=== PATIENT | male | born 1990 | race Caucasian/White ===

== ENCOUNTER 2018-10-17 09:31 | Emergency (ER) | payer OTHER ==
[~2018-10-17] VITALS: Ht 177.8 cm; Wt 82.4 kg
[2018-10-17 09:32] VITALS: BP 149/91
[2018-10-17] MEDS ORDERED: adhd med (09:38)
--- NOTE | 2018-10-17 10:17 | REP ---
CHEST, TWO VIEWS: HISTORY: Cough. The lungs are clear. The heart is normal in size. The pulmonary vasculature is normal in appearance. The bony structure is intact. IMPRESSION: No acute disease. Electronically Signed by Roberto Carlos Garcia MD 10/17/2018 10:24 A
[2018-10-17 10:28] LABS: INFLUENZA A AMPLIFICATION POSITIVE (NEGATIVE); INFLUENZA B AMPLIFICATION NEGATIVE (NEGATIVE)
== END 2018-10-17 10:39 | disposition home or self-care (01) ==
LOC: M ED 09:31
DX: J09.X2 Influenza due to identified novel influenza A virus with other respiratory manifestations (principal); I10 Essential (primary) hypertension; Z88.8 Allergy status to other drugs, medicaments and biological substances; Z88.0 Allergy status to penicillin; Z88.1 Allergy status to other antibiotic agents

== ENCOUNTER 2018-11-11 03:39 | Emergency (ER) | payer OTHER ==
[~2018-11-11] VITALS: Ht 177.8 cm; Wt 80.9 kg
[~2018-11-11 03:39] MED LIST: adhd med
[2018-11-11] MEDS ORDERED: BUPR10TASR PO (03:43)
[2018-11-11] MEDS ORDERED: OXAZEPAM 15 MG CAP PO ONE (04:15)
[2018-11-11] MEDS ORDERED: METOPROLOL TART 50 MG TAB PO ONE (04:15)
[2018-11-11 04:30] LABS: BASO # 0.1 10^3/uL (0.0-0.2); BASO % 0.6 % (0.0-1.0); EOS # 0.1 10^3/uL (0.0-0.50); HEMATOCRIT 44.2 % (42.0-52.0); HEMOGLOBIN 15.6 g/dl (13.5-17.5); LYMPH # 2.8 10^3/uL (1.5-6.5); LYMPH % 36.6 % (24.0-44.0); MEAN CORPUSCULAR HGB CONC 35.3 g/dl (32.0-36.5); MEAN CORPUSCULAR VOLUME 87.7 fl (80.0-96.0); MONO # 0.7 10^3/uL (0.0-0.8); MONO % 8.4 % (0.0-5.0); NEUTROPHILS # 4.1 10^3/uL (1.8-7.7); PLATELET COUNT, AUTOMATED 250 10^3/uL (150-450); RED BLOOD COUNT 5.04 10^6/uL (4.30-6.10); WHITE BLOOD COUNT 7.7 10^3/uL (4.0-10.0)
[2018-11-11 05:01] LABS: ALBUMIN 3.9 GM/DL (3.2-5.2); ALT/SGPT 47 U/L (12-78); BILIRUBIN,DIRECT 0.2 MG/DL (0.0-0.2); BILIRUBIN,TOTAL 0.7 MG/DL (0.2-1.0); BLOOD UREA NITROGEN 11 MG/DL (7-18); CALCIUM LEVEL 9.1 MG/DL (8.5-10.1); CARBON DIOXIDE LEVEL 22 MEQ/L (21-32); CHLORIDE LEVEL 105 MEQ/L (98-107); CK-MB VALUE MASS < 1.0 NG/ML (<3.6); CPK CREATINE PHOSPHOKINASE 93 U/L (39-308); CREATININE FOR GFR 0.96 MG/DL (0.70-1.30); ETHYL ALCOHOL (ETHANOL) < 0.003 % (0.000-0.010); GLOMERULAR FILTRATION RATE > 60.0 (>60); GLUCOSE, FASTING 93 MG/DL (70-100); MB/CK RELATIVE INDEX 1.08 (< OR =4); POTASSIUM SERUM 3.5 MEQ/L (3.5-5.1); SODIUM LEVEL 139 MEQ/L (136-145); TOTAL PROTEIN 7.1 GM/DL (6.4-8.2); TROPONIN I < 0.02 NG/ML (< 0.10)
[2018-11-11 05:45] LABS: AMPHETAMINES LEVEL URINE NEGATIVE (NEGATIVE); BARBITURATES URINE NEGATIVE (NEGATIVE); BENZODIAZEPINES URINE NEGATIVE (NEGATIVE); CANNABINOIDS URINE POSITIVE (NEGATIVE); COCAINE METABOLITE URINE NEGATIVE (NEGATIVE); METHADONE URINE NEGATIVE (NEGATIVE); OPIATES URINE NEGATIVE (NEGATIVE); PHENCYCLIDINE URINE NEGATIVE (NEGATIVE)
[2018-11-11] MEDS ORDERED: ATEN25TA PO (05:55)
[2018-11-11 06:27] VITALS: BP 126/89
--- NOTE | 2018-11-11 07:55 | REP ---
Portable chest, single AP view, the patient sitting, 04:31 a.m.: Comparison is 10/17/2018. The lung dean are clear. The cardiac size is normal. The kasia, mediastinum, and skeletal structures are unremarkable. Impression: Negative portable chest. There is no interval change. Electronically Signed by Kota Ramires MD 11/11/2018 07:47 A
--- NOTE | 2018-11-12 19:19 | ECGEPIP ---
Stationary ECG Study [facility] - ED Test Date: 2018-11-11 Pat Name: JAD RODRIGUEZ Department: Room: - Gender: M [employer]: gt : 1990 Requested By: Jean Castillo Order Number: [id number] Reading MD: Olivia Courtney Measurements Intervals [place] Rate: 88 P: 11 VT: 127 QRS: 38 QRSD: 89 T: 58 QT: 366 QTc: 444 Interpretive Statements SINUS RHYTHM WITH SINUS ARRHYTHMIA INCREASED RATE 09/17/15 Electronically Signed On 11-12-2018 19:19:26 EST by Olivia Courtney
== END 2018-11-11 06:29 | disposition home or self-care (01) ==
LOC: M ED 03:39
DX: F10.230 Alcohol dependence with withdrawal, uncomplicated (principal); F12.10 Cannabis abuse, uncomplicated; I10 Essential (primary) hypertension; I49.9 Cardiac arrhythmia, unspecified; F32.9 Major depressive disorder, single episode, unspecified; F17.200 Nicotine dependence, unspecified, uncomplicated; Z88.0 Allergy status to penicillin; Z88.1 Allergy status to other antibiotic agents; Z79.899 Other long term (current) drug therapy
CPT/HCPCS: 36415; 71045; 80048; 80076; 80307; 82550; 82553; 84484; 85025; 93005; 93041; 99285; G0480

== ENCOUNTER 2021-06-06 06:44 | Emergency (ER) | payer OTHER ==
[~2021-06-06] VITALS: Ht 177.8 cm; Wt 84.3 kg
[~2021-06-06 06:44] MED LIST changes: +ATEN25TA PO; +BUPR10TASR PO
[2021-06-06] MEDS ORDERED: ADDE20CA3 PO (06:50)
[2021-06-06 07:56] LABS: BASO # 0.1 10^3/uL (0.0-0.2); BASO % 0.8 % (0.0-1.0); EOS # 0.1 10^3/uL (0.0-0.5); EOS % 1.8 % (0.0-3.0); HEMATOCRIT 47.2 % (42.0-52.0); HEMOGLOBIN 15.9 g/dl (13.5-17.5); LYMPH # 2.1 10^3/uL (1.5-5.0); LYMPH % 27.2 % (24.0-44.0); MEAN CORPUSCULAR HEMOGLOBIN 30.9 pg (27.0-33.0); MEAN CORPUSCULAR HGB CONC 33.7 g/dl (32.0-36.5); MEAN CORPUSCULAR VOLUME 91.7 fl (80.0-96.0); MONO # 0.9 10^3/uL (0.0-0.8); MONO % 11.4 % (2.0-8.0); NEUTROPHILS # 4.5 10^3/uL (1.5-8.5); NEUTROPHILS % 58.2 % (36.0-66.0); PLATELET COUNT, AUTOMATED 258 10^3/uL (150-450); RED BLOOD COUNT 5.15 10^6/uL (4.30-6.10); WHITE BLOOD COUNT 7.8 10^3/uL (4.0-10.0)
[2021-06-06] MEDS ORDERED: NAPROXEN 250 MG TAB PO ONE (08:15)
[2021-06-06 08:20] VITALS: BP 132/80
[2021-06-06] MEDS ORDERED: PRED20TA PO (08:25)
== END 2021-06-06 09:04 | disposition home or self-care (01) ==
LOC: M ED 06:44
DX: M10.072 Idiopathic gout, left ankle and foot (principal); I10 Essential (primary) hypertension; F12.10 Cannabis abuse, uncomplicated; Z88.1 Allergy status to other antibiotic agents; Z88.8 Allergy status to other drugs, medicaments and biological substances

== ENCOUNTER 2022-11-21 18:13 | Emergency (ER) | payer OTHER ==
[~2022-11-21] VITALS: Ht 177.8 cm; Wt 89.5 kg
[~2022-11-21 18:13] MED LIST changes: +ADDE20CA3 PO; +PRED20TA PO
[2022-11-21] MEDS ORDERED: LISI10TA22 PO (18:28)
[2022-11-21] MEDS ORDERED: METH-1164 PO (18:28)
[2022-11-21 21:46] VITALS: BP 147/91
== END 2022-11-21 21:40 | disposition home or self-care (01) ==
LOC: M ED 18:13
DX: M71.22 Synovial cyst of popliteal space [Baker], left knee (principal); I10 Essential (primary) hypertension; F41.9 Anxiety disorder, unspecified; F32.A Depression, unspecified; F90.9 Attention-deficit hyperactivity disorder, unspecified type; F12.10 Cannabis abuse, uncomplicated; Z88.1 Allergy status to other antibiotic agents; Z79.811 Long term (current) use of aromatase inhibitors; Z79.899 Other long term (current) drug therapy

== ENCOUNTER 2022-12-02 10:56 | Inpatient (IN) | payer OTHER ==
[~2022-12-02] VITALS: Ht 177.8 cm; Wt 87.2 kg
[~2022-12-02 10:56] MED LIST changes: +LISI10TA22 PO; +METH-1164 PO
[2022-12-02] MEDS ORDERED: MORPHINE 10 MG/ML 1ML VIAL IM ONE (13:20)
[2022-12-02 14:08] LABS: BASO # 0.1 10^3/uL (0.0-0.2); BASO % 0.8 % (0.0-1.0); EOS # 0.5 10^3/uL (0.0-0.5); EOS % 4.1 % (0.0-3.0); HEMATOCRIT 43.3 % (42.0-52.0); HEMOGLOBIN 14.9 g/dl (13.5-17.5); LYMPH # 3.3 10^3/uL (1.5-5.0); LYMPH % 28.8 % (24.0-44.0); MEAN CORPUSCULAR HEMOGLOBIN 30.7 pg (27.0-33.0); MEAN CORPUSCULAR HGB CONC 34.4 g/dl (32.0-36.5); MEAN CORPUSCULAR VOLUME 89.1 fl (80.0-96.0); MONO % 13.8 % (2.0-8.0); NEUTROPHILS % 51.9 % (36.0-66.0); PLATELET COUNT, AUTOMATED 362 10^3/uL (150-450); RED BLOOD COUNT 4.86 10^6/uL (4.30-6.10); WHITE BLOOD COUNT 11.6 10^3/uL (4.0-10.0)
[2022-12-02 14:16] LABS: MONO # 1.6 10^3/uL (0.0-0.8)
[2022-12-02 14:31] LABS: ERYTHROCYTE SEDIMENTATION RATE 40 mm/hr (0-15)
[2022-12-02] MEDS ORDERED: LIDOCAINE 1% MDV 20ML VIAL SC ONE (15:20)
[2022-12-02 16:28] LABS: SOURCE, BODY FLUID CRYSTALS LFT KNEE; SOURCE, BODY FLUID GLUCOSE LFT KNEE
[2022-12-02 16:30] LABS: SOURCE, BODY FLUID LFT KNEE; SYNOVIAL FLUID COLOR YELLOW (COLORLESS)
[2022-12-02 17:45] LABS: SOURCE, BODY FLUID URIC ACID LFT KNEE; URIC ACID, BODY FLUID 7.4 MG/DL (NOT ESTABLISHED)
[2022-12-02] MEDS ORDERED: ONDANSETRON 4MG 2ML VIAL IV ONE (18:25)
[2022-12-02] MEDS ORDERED: MORPHINE 4 MG/ML 1ML VIAL IV ONE (18:25)
[2022-12-02] MEDS ORDERED: VANCOMYCIN HCL 1,250 MG in NS 250 ML IV ONE (19:20)
[2022-12-02] MEDS ORDERED: VANCOMYCIN HCL 750 MG, VIAL MATE ADAPTER 1 EACH in D5W 250 ML IV ONE (19:30)
[2022-12-02] MEDS ORDERED: VITMTA PO (19:47)
[2022-12-02] MEDS ORDERED: HOME MED LIST COMPLETE! XX SCH (19:50)
[2022-12-02] MEDS ORDERED: MORPHINE 2 MG/ML 1ML VIAL IV PRN (20:10)
[2022-12-02] MEDS ORDERED: ACETAMINOPHEN TAB 650MG DOSE (2X325MG) PO PRN (20:10)
[2022-12-02] MEDS ORDERED: VANCOMYCIN HCL 500 MG in D5W MINI-BAG PLUS 100 ML IV ONE (20:30)
[2022-12-02 20:40] LABS: RSV AMPLIFICATION NEGATIVE (NEGATIVE)
[2022-12-02 21:50] VITALS: BP 149/91
[2022-12-02] MEDS ORDERED: LevoFLOXacin IV 750 MG in IV 1 EA IV SCH (22:00)
[2022-12-02 23:27] LABS: CRYSTALS, BODY FLUID URIC ACID (NONE SEEN)
[2022-12-03] MEDS: KETOROLAC 30 MG/ML 1ML VIAL IV PRN ×4 (00:30→18:19)
[2022-12-03] MEDS: VANCOMYCIN HCL 1,000 MG, VIAL MATE ADAPTER 1 EACH in NS 250 ML IV SCH ×2 (01:27→09:27)
[2022-12-03 01:47] LABS: ALBUMIN 3.4 G/DL (3.2-5.2); ALKALINE PHOSPHATASE 57 U/L (46-116); ALT/SGPT 20 U/L (7.0-40); AST/SGOT 17 U/L (<34); BILIRUBIN,TOTAL 0.5 MG/DL (0.3-1.2); BLOOD UREA NITROGEN 12 MG/DL (9-23); CALCIUM LEVEL 9.1 MG/DL (8.5-10.1); CARBON DIOXIDE LEVEL 29 MMOL/L (20-31); CHLORIDE LEVEL 102 MMOL/L (98-107); GLOMERULAR FILTRATION RATE > 60.0 (>60); GLUCOSE, FASTING 83 MG/DL (60-100); POTASSIUM SERUM 4.2 MMOL/L (3.5-5.1); SODIUM LEVEL 137 MMOL/L (136-145)
[2022-12-03 02:05] LABS: TOTAL PROTEIN 6.1 G/DL (5.7-8.2)
[2022-12-03 06:00] VITALS: BP 124/74
[2022-12-03 06:14] LABS: HEMATOCRIT 40.7 % (42.0-52.0); HEMOGLOBIN 13.5 g/dl (13.5-17.5); MEAN CORPUSCULAR HEMOGLOBIN 30.6 pg (27.0-33.0); MEAN CORPUSCULAR HGB CONC 33.2 g/dl (32.0-36.5); MEAN CORPUSCULAR VOLUME 92.3 fl (80.0-96.0); PLATELET COUNT, AUTOMATED 301 10^3/uL (150-450); RED BLOOD COUNT 4.41 10^6/uL (4.30-6.10); WHITE BLOOD COUNT 9.6 10^3/uL (4.0-10.0)
[2022-12-03 06:55] LABS: ALKALINE PHOSPHATASE 51 U/L (46-116); ALT/SGPT 19 U/L (7.0-40); AST/SGOT 14 U/L (<34); BILIRUBIN,TOTAL 0.6 MG/DL (0.3-1.2); BLOOD UREA NITROGEN 12 MG/DL (9-23); CALCIUM LEVEL 9.2 MG/DL (8.5-10.1); CARBON DIOXIDE LEVEL 27 MMOL/L (20-31); CHLORIDE LEVEL 106 MMOL/L (98-107); CREATININE FOR GFR 0.94 MG/DL (0.70-1.30); GLOMERULAR FILTRATION RATE > 60.0 (>60); GLUCOSE, FASTING 97 MG/DL (60-100); MAGNESIUM LEVEL 1.9 MG/DL (1.8-2.4); POTASSIUM SERUM 4.5 MMOL/L (3.5-5.1); SODIUM LEVEL 138 MMOL/L (136-145); TOTAL PROTEIN 5.7 G/DL (5.7-8.2)
[2022-12-03] MEDS ORDERED: INFLUENZA QUADRIVALENT PF VACCINE 0.5ML SYRINGE IM.IMMUN ONE (09:00)
[2022-12-03] MEDS: HEPARIN SOD (PORCINE) 5000UNITS/ML 1ML VIAL/SYRINGE SQ SCH ×2 (09:28→20:21)
[2022-12-03 14:00] VITALS: BP 114/69
[2022-12-03] MEDS ORDERED: predniSONE 20 MG TAB PO SCH (15:05)
[2022-12-03] MEDS: VANCOMYCIN HCL 750 MG, VIAL MATE ADAPTER 1 EACH in D5W 250 ML IV SCH ×2 (18:20→19:29)
[2022-12-03] MEDS ORDERED: LevoFLOXacin 750 MG TABLET PO SCH (21:00)
[2022-12-03 22:00] VITALS: BP 99/65
[2022-12-04] MEDS: VANCOMYCIN HCL 750 MG, VIAL MATE ADAPTER 1 EACH in D5W 250 ML IV SCH ×4 (02:33→11:00)
[2022-12-04] MEDS: KETOROLAC 30 MG/ML 1ML VIAL IV PRN (02:43)
[2022-12-04 06:00] VITALS: BP 134/74
[2022-12-04 06:22] LABS: HEMOGLOBIN 13.5 g/dl (13.5-17.5); MEAN CORPUSCULAR HEMOGLOBIN 30.2 pg (27.0-33.0); MEAN CORPUSCULAR HGB CONC 32.9 g/dl (32.0-36.5); MEAN CORPUSCULAR VOLUME 91.7 fl (80.0-96.0); PLATELET COUNT, AUTOMATED 334 10^3/uL (150-450); RED BLOOD COUNT 4.47 10^6/uL (4.30-6.10); WHITE BLOOD COUNT 8.4 10^3/uL (4.0-10.0)
[2022-12-04 06:42] LABS: BLOOD UREA NITROGEN 11 MG/DL (9-23); CALCIUM LEVEL 9.4 MG/DL (8.5-10.1); CARBON DIOXIDE LEVEL 26 MMOL/L (20-31); CHLORIDE LEVEL 108 MMOL/L (98-107); CREATININE FOR GFR 0.65 MG/DL (0.70-1.30); GLOMERULAR FILTRATION RATE > 60.0 (>60); GLUCOSE, FASTING 181 MG/DL (60-100); SODIUM LEVEL 140 MMOL/L (136-145)
[2022-12-04] MEDS ORDERED: PRED20TA PO (07:36)
[2022-12-04] MEDS ORDERED: ACET1TAB55 PO (07:36)
[2022-12-04] MEDS ORDERED: TRAM50TA2 PO (07:36)
[2022-12-04 08:00] VITALS: BP 134/82
[2022-12-04 08:32] VITALS: BP 134/82
[2022-12-04] MEDS: HEPARIN SOD (PORCINE) 5000UNITS/ML 1ML VIAL/SYRINGE SQ SCH (08:33)
[2022-12-04] MEDS ORDERED: predniSONE 20 MG TAB PO SCH (09:00)
== END 2022-12-04 11:40 | disposition home or self-care (01) | DRG 554 ==
LOC: M ED 10:56 → M ED INP 19:57 → M MS5PR 22:00
PROVIDERS: ADMIT Family Medicine; ATTEND Family Medicine
PROC: 0S9D3ZX Drainage of Left Knee Joint, Percutaneous Approach, Diagnostic (ICD-10-PCS; principal; 2022-12-02)
DX: M10.9 Gout, unspecified (principal); I10 Essential (primary) hypertension; F90.9 Attention-deficit hyperactivity disorder, unspecified type; Z90.49 Acquired absence of other specified parts of digestive tract; Z79.899 Other long term (current) drug therapy; Z88.1 Allergy status to other antibiotic agents; Z88.8 Allergy status to other drugs, medicaments and biological substances; Z20.822 Contact with and (suspected) exposure to COVID-19